=== PATIENT | female | born 1965 | race Caucasian/White ===

== ENCOUNTER → 2017-08-16 | Outpatient (CLI) | payer OTHER | LOC: FIMAGING 15:58 | PROVIDERS: ATTEND Family Medicine | DX: Z12.31 Encounter for screening mammogram for malignant neoplasm of breast (principal) ==

== ENCOUNTER 2018-02-12 15:45 | Emergency (ER) | payer OTHER ==
--- NOTE | 2018-02-12 16:12 | EDPHY ---
HPI/HX/ROS/PE/MDM Narrative: CHIEF COMPLAINT: Lower abdominal pain HPI: The patient is a 52 y/o female with a history of diverticulitis complaining of constant lower abdominal pain since waking this morning. The pain is sometimes sharp and sometimes achy, but always present. She feels the urge to have a bowel movement, but only passed a small amount of "alvarez" stool earlier today. She denies black, tarry, or bloody stools. She's had associated loss of appetite. No associated fever, dysuria, vomiting, nausea. She denies preceding trauma or other obvious precipitating causes. Pain is worse with palpation and symptoms feel similar to prior episodes of diverticulitis. No abdominal surgical history. REVIEW OF SYSTEMS: A comprehensive 10 system review of systems is otherwise negative aside from elements mentioned in the history of present illness. PMH: Sigmoid diverticulitis; hemorrhagic ovarian cyst; hypothyroidism SOCIAL HISTORY: Lives in [place]. Employed. PHYSICAL EXAM: General:Patient is alert, in no acute distress. ENT:Eyes are normal to inspection. ENT inspection normal. Neck: Normal inspection. Full range of motion. Respiratory:No respiratory distress. Breath sounds normal bilaterally. Cardiovascular: Regular rate and rhythm. Strong peripheral pulses. Normal cap refill. Abdomen: Diffuse moderate lower abdominal tenderness to palpation. There are no peritoneal signs. Back: Normal to inspection. No tenderness to palpation. Skin: Normal color. No rash. Warm and dry. Extremities: Normal appearance. Full range of motion. Neuro: Oriented x3. Normal motor function. Normal sensory function. ED Course: This is a 52 y/o female with a history of diverticulitis who presents with a 1- day history of constant lower abdominal pain that feels the same as her prior episode of diverticulitis. She has moderate diffuse lower abdominal tenderness. Plan for IV, labs, UA, abdominal CT, and symptomatic management. 1L IV NS 15mg IV Ketorolac ordered. Patient is continuing to have pain. 0.5mg IV Dilaudid ordered. CT shows mild sigmoid diverticulitis. 1gm IV Flagyl, 500mg PO ciprofloxacin ordered. Reassessed patient and discussed findings. She will be discharged with scripts for Flagyl and Cipro with standard care and follow up instructions. Referral to GI provided. She is comfortable with this plan. MDM: This patient presents with signs and symptoms of diverticulitis. I think she is safe for initial treatment as outpatient with oral antibiotics. She is comfortable with this plan and we discussed strict return precautions. - Data Points Imaging: Discussed imaging studies w/ call taker Radiologist, I viewed and interpreted images myself Laboratory Results: Laboratory Results 02/12/18 16:10 02/12/18 16:10 02/12/18 02/12/18 02/12/18 16:20 16:10 16:10 WBC 12.42 10^3/uL H 10^3/uL (3.80-9.50) RBC 4.96 10^6/uL 10^6/uL (4.18-5.33) Hgb 15.1 g/dL g/dL (12.6-16.3) Hct 44.8 % % (38.0-47.0) MCV 90.3 fL fL (81.5-99.8) MCH 30.4 pg pg (27.9-34.1) MCHC 33.7 g/dL g/dL (32.4-36.7) RDW 12.1 % % (11.5-15.2) Plt Count 287 10^3/uL 10^3/uL (150-400) MPV 9.2 fL fL (8.7-11.7) Neut % (Auto) 72.0 % % (39.3-74.2) Lymph % (Auto) 18.9 % % (15.0-45.0) Charles % (Auto) 7.3 % % (4.5-13.0) Eos % (Auto) 1.1 % % (0.6-7.6) Baso % (Auto) 0.5 % % (0.3-1.7) Nucleat RBC Rel Count 0.0 % % (0.0-0.2) Absolute Neuts (auto) 8.93 10^3/uL H 10^3/uL (1.70-6.50) Absolute Lymphs (auto) 2.35 10^3/uL 10^3/uL (1.00-3.00) Absolute Monos (auto) 0.91 10^3/uL H 10^3/uL (0.30-0.80) Absolute Eos (auto) 0.14 10^3/uL 10^3/uL (0.03-0.40) Absolute Basos (auto) 0.06 10^3/uL 10^3/uL (0.02-0.10) Absolute Nucleated RBC 0.00 10^3/uL 10^3/uL (0-0.01) Immature Gran % 0.2 % % (0.0-1.1) Immature Gran # 0.03 10^3/uL 10^3/uL (0.00-0.10) Sodium 141 mEq/L mEq/L (135-145) Potassium 4.0 mEq/L mEq/L (3.3-5.0) Chloride 103 mEq/L mEq/L (97-110) Carbon Dioxide 26 mEq/l mEq/l (22-31) Anion Gap 12 mEq/L mEq/L (6-14) BUN 15 mg/dL mg/dL (7-23) Creatinine 0.8 mg/dL mg/dL (0.6-1.0) Estimated GFR > 60 Glucose 92 mg/dL mg/dL (70-100) Calcium 9.8 mg/dL mg/dL (8.5-10.4) Urine Color PALE YELLOW Urine Appearance CLEAR Urine pH 6.0 (5.0-7.5) Ur Specific [place] 1.004 (1.002-1.030) Urine Protein NEGATIVE (NEGATIVE) Urine Ketones NEGATIVE (NEGATIVE) Urine Blood 1+ H (NEGATIVE) Urine Nitrate NEGATIVE (NEGATIVE) Urine Bilirubin NEGATIVE (NEGATIVE) Urine Urobilinogen NEGATIVE EU EU (0.2-1.0) Ur Leukocyte Esterase NEGATIVE (NEGATIVE) Urine RBC 1-3 /hpf /hpf (0-3) Urine WBC 1-3 /hpf /hpf (0-3) Ur Epithelial Cells TRACE /lpf /lpf (NONE-1+) Urine Bacteria TRACE /hpf H /hpf (NONE SEEN) Urine Glucose NEGATIVE (NEGATIVE) Medications Given: Discontinued Medications Hydromorphone HCl (Dilaudid) 0.5 mg IVP EDNOW ONE Stop: 02/12/18 17:08 Last Admin: 02/12/18 17:11 Dose: 0.5 mg Sodium Chloride (Ns) 1,000 mls @ 3,000 mls/hr IV ONCE ONE Stop: 02/12/18 16:37 Last Admin: 02/12/18 16:23 Dose: 1,000 mls Ketorolac Tromethamine (Toradol) 15 mg IVP EDNOW ONE Stop: 02/12/18 16:19 Last Admin: 02/12/18 16:23 Dose: 15 mg General Time Seen by Provider: 02/12/18 15:58 Initial Vital Signs: Initial Vital Signs Temperature (C) 36.8 C 02/12/18 15:48 Heart Rate 91 02/12/18 15:48 Respiratory Rate 16 02/12/18 15:48 Blood Pressure 138/95 H 02/12/18 15:48 O2 Sat (%) 97 02/12/18 15:48 O2 Delivery Mode Room Air Allergies/Adverse Reactions: No Known Allergies Allergy (Verified 11/16/15 08:15) Home Medications: Medication Instructions Recorded [place] Thyroid 02/12/18 Ciprofloxacin [Cipro] 500 mg PO BID #20 tab 02/12/18 metroNIDAZOLE [Flagyl] 500 mg PO TID #30 tab 02/12/18 Departure - Departure Disposition: Home, Routine, Self-Care Clinical Impression: Diverticulitis Condition: Good Instructions: Ciprofloxacin (By mouth), Metronidazole (By mouth), Diverticulitis (ED) Additional Instructions: 1. Take all antibiotics as directed. Be sure to complete the entire prescription even if your symptoms have resolved. 2. Follow up with GI doctor in the next week. 3. Return to the ED for any worsening of condition. Referrals: Lauren Da Silva MD [Primary Care Provider] - As per Instructions Angelo Jones MD [Medical Doctor] - As per Instructions Prescriptions: Ciprofloxacin [Cipro] 500 mg PO BID #20 tab metroNIDAZOLE [Flagyl] 500 mg PO TID #30 tab Report Scribed for: Fritz Taylor Report Scribed by: Maribell Maxwell Date of Report: 02/12/18 Time of Report: 16:01 Physician Review and Approval Statement: Portions of this note were transcribed by an ED scribe. I personally performed the history, physical exam, and medical decision making; and confirm the accuracy of the information in the transcribed note.
[2018-02-12 16:15] LABS: PLATELET COUNT 287 10^3/uL (150-400)
[2018-02-12] MEDS ORDERED: KETOROLAC 15 MG/1 ML SDV ONE (16:16)
[2018-02-12] MEDS ORDERED: KETOROLAC 15 MG/1 ML SDV IVP ONE (16:18)
[2018-02-12] MEDS ORDERED: NS 1,000 ML IV ONE (16:18)
[2018-02-12] MEDS ORDERED: IOPAMIDOL (ISOVUE-300) 100 ML BTL ONE (16:46)
[2018-02-12] MEDS ORDERED: HYDROmorphONE/DILAUDID 2 MG/ML INJ IVP ONE (17:07)
[2018-02-12] MEDS ORDERED: HYDROmorphONE/DILAUDID 1 MG/ML INJ ONE (17:08)
[2018-02-12] MEDS ORDERED: CIPROFLOXACIN 500 MG TAB PO ONE (17:42)
[2018-02-12 18:54] VITALS: BP 142/95
== END 2018-02-12 18:53 | disposition home or self-care (01) ==
DX: K57.32 Diverticulitis of large intestine without perforation or abscess without bleeding (principal); E03.9 Hypothyroidism, unspecified
CPT/HCPCS: 96365; J1170; J1885; Q9967